=== PATIENT | female | born 1970 | race Caucasian/White ===

== ENCOUNTER → 2025-03-11 | Outpatient (CLI) | payer BC ==
--- NOTE | 2025-03-18 10:23 | MM ---
Reason for Exam: Screening (asymptomatic). Last mammogram was performed 2 year(s) and 1 month(s) ago. Patient History: Menarche at age 11. Patient has no children. Postmenopausal. Patient tested for BRCA1 outcome was negative. Patient tested for BRCA2 outcome was negative. 02/13/2022, Benign US biopsy breast VAD RT on the right side. Sister (patrice garrido) had breast cancer, age 41. Sister (germaine) had breast cancer, age 38. Mother had ovarian cancer, age 70. Risk Values: Lennie 5 year model risk: 5.1%. NCI Lifetime model risk: 32.3%. Prior Study Comparison: 07/28/2015 Bilateral Screening Mammogram, [facility]. 08/04/2016 Bilateral Screening Mammogram, [facility]. 08/08/2017 Bilateral Screening Mammogram, [facility]. 01/05/2019 Bilateral Screening Mammogram, [facility]. 01/05/2021 Bilateral Screening Mammogram, [facility]. 01/07/2021 Right Diagnostic Mammogram, [facility]. 01/08/2022 Bilateral Screening Mammogram, [facility]. 03/02/2023 Bilateral Screening Mammogram, [facility]. Tissue Density: The breasts are heterogeneously dense, which may obscure small masses. Findings: Analyzed By CAD. Microclip anterior right breast from prior biopsy. Asymmetric density here on the MLO view appears increased. This may represent superimposition shadow as no clear correlate is seen on the CC view. Further evaluation recommended. Otherwise, no significant change. Overall Assessment: Incomplete: need additional imaging evaluation, BI-RAD 0 Management: Special View Mammogram of the right breast. See note below in regards to the patient's increased 5 year Lennie score. Given patient's increased lifetime risk score, patient may qualify for supplementary screening with breast MRI. [facility] will attempt to contact patient to return for supplemental views and ultrasound if indicated. Note on Lennie scores and lifetime risk: 1. A Lennie score greater than 3% is considered moderate risk. If this is the case, consider specialist referral to assess eligibility for a risk reducing agent. 2. If overall lifetime risk for the development of breast cancer is 20% or higher, the patient may qualify for future screening with alternating mammogram and breast MRI. [facility], , 03/18/2025 10:20 AM. Electronically signed and approved by: Naomy Reyes M.D. Radiologist
== END | disposition home or self-care (01) ==
LOC: RADMAMWWP 16:13
PROVIDERS: ATTEND Family Medicine
DX: Z12.31 Encounter for screening mammogram for malignant neoplasm of breast (principal); R92.333 Mammographic heterogeneous density, bilateral breasts; Z78.0 Asymptomatic menopausal state; Z80.3 Family history of malignant neoplasm of breast
CPT/HCPCS: 77063; 77067

== ENCOUNTER → 2025-03-21 | Outpatient (CLI) | payer BC ==
--- NOTE | 2025-03-21 12:08 | MM ---
Reason for Exam: Additional evaluation requested from abnormal screening. Last screening mammogram was performed less than 1 month ago. Patient History: Menarche at age 11. Patient has no children. Postmenopausal. Patient tested for BRCA1 outcome was negative. Patient tested for BRCA2 outcome was negative. 02/13/2022, Benign US biopsy breast VAD RT on the right side. Sister (patrice garrido) had breast cancer, age 41. Sister (germaine) had breast cancer, age 38. Mother had ovarian cancer, age 70. Risk Values: Lennie 5 year model risk: 5.1%. NCI Lifetime model risk: 32.3%. Prior Study Comparison: 07/28/2015 Bilateral Screening Mammogram, [facility]. 08/04/2016 Bilateral Screening Mammogram, [facility]. 08/08/2017 Bilateral Screening Mammogram, [facility]. 01/05/2019 Bilateral Screening Mammogram, [facility]. 01/05/2021 Bilateral Screening Mammogram, [facility]. 01/07/2021 Right Diagnostic Mammogram, [facility]. 01/08/2022 Bilateral Screening Mammogram, [facility]. 03/02/2023 Bilateral Screening Mammogram, [facility]. 03/11/2025 Bilateral MG 3D screening mammo w/cad, [facility]. Tissue Density: Right: The breasts are heterogeneously dense, which may obscure small masses. Findings: Analyzed By CAD. Microclip behind the nipple from prior biopsy. There is persistent increased density in this region for which further ultrasound evaluation is recommended. Overall Assessment: Incomplete: need additional imaging evaluation, BI-RAD 0 Management: Diagnostic Breast Ultrasound of the right breast. [facility], , 03/21/2025 12:05 PM. Electronically signed and approved by: Naomy Reyes M.D. Radiologist
--- NOTE | 2025-03-21 12:58 | USB ---
Reason for Exam: Additional evaluation requested from prior study. Patient History: Menarche at age 11. Patient has no children. Postmenopausal. Patient tested for BRCA1 outcome was negative. Patient tested for BRCA2 outcome was negative. 02/13/2022, Benign US biopsy breast VAD RT on the right side. Sister (patrice garrido) had breast cancer, age 41. Sister (germaine) had breast cancer, age 38. Mother had ovarian cancer, age 70. Risk Values: Vlad 5 year model risk: 5.1%. NCI Lifetime model risk: 32.3%. Technique: Method: Targeted. Prior Study Comparison: 01/08/2022 Bilateral Screening Mammogram, [facility]. 03/02/2023 Bilateral Screening Mammogram, [facility]. 03/11/2025 Bilateral MG 3D screening mammo w/cad, [facility]. Findings: The axilla of the right breast and the retroareolar of the right breast were scanned. Targeted ultrasound subareolar and periareolar regions show some ectasia and a tiny 5 mm benign cyst. No suspicious solid lesion is seen. Six-month follow-up mammogram recommended. Overall Assessment: Probably benign, BI-RAD 3 Management: Diagnostic Mammogram of the right breast in 6 months. SEE NOTE BELOW IN REGARDS TO THE PATIENT'S INCREASED 5 YEAR VLAD SCORE AND INCREASED LIFETIME RISK SCORE. A clinical breast exam by your physician is recommended on an annual basis and results should be correlated with mammographic findings. This exam should not preclude additional follow-up of suspicious palpable abnormalities. Results were given to the patient verbally at the time of exam. Note on Vlad scores and lifetime risk: 1. A Vlad score greater than 3% is considered moderate risk. If this is the case, consider specialist referral to assess eligibility for a risk reducing agent. 2. If overall lifetime risk for the development of breast cancer is 20% or higher, the patient may qualify for future screening with alternating mammogram and breast MRI. [facility], , 03/21/2025 12:54 PM. Electronically signed and approved by: Naomy Reyes M.D. Radiologist
== END | disposition home or self-care (01) ==
LOC: RADMAMWWP 10:56
PROVIDERS: ATTEND Family Medicine
DX: R92.8 Other abnormal and inconclusive findings on diagnostic imaging of breast (principal); R92.331 Mammographic heterogeneous density, right breast; Z78.0 Asymptomatic menopausal state; Z80.3 Family history of malignant neoplasm of breast
CPT/HCPCS: 77061; 77065